=== PATIENT | male | born 1970 | race Caucasian/White ===

== ENCOUNTER 2023-06-09 11:27 | Observation (INO) | payer SELFPAY ==
[2023-06-09] MEDS ORDERED: Ondansetron PF 4 MG/2 ML Vial IVP PRN (13:44)
[2023-06-09] MEDS ORDERED: Ondansetron ODT 4 MG TAB PO PRN (13:44)
[2023-06-09] MEDS ORDERED: Morphine 2 MG/ML VIAL SLOW IVP PRN (13:46)
[2023-06-09] MEDS: Sodium Chloride 0.9% 1,000 ML IV SCH ×3 (14:34→22:54)
[2023-06-09] MEDS ORDERED: Ketorolac Tromethamine 30 MG (1 mL) VIAL IVP PRN ×2 (15:18→21:40)
[2023-06-09] MEDS ORDERED: Nicotine 21 MG PATCH TD PRN (15:19)
[2023-06-09] MEDS ORDERED: Electrolyte Replacement Protocol 1 EACH FS SCH (16:30)
[2023-06-09 17:03] VITALS: BMI 24.4
[2023-06-09] MEDS ORDERED: Piperacillin/Tazobactam 4.5 GM in Sodium Chloride 0.9% 100 ML IVPB SCH (18:00)
[2023-06-09] MEDS: Piperacillin/Tazobactam 3.375 GM in Sodium Chloride 0.9% 100 ML IVPB SCH ×2 (18:36→21:34)
[2023-06-09] MEDS ORDERED: fentaNYL 50 mcg/mL 1 mL Vial SLOW IVP PRN ×2 (22:48→22:49)
[2023-06-09] MEDS: Acetaminophen 500 MG TAB PO SCH (22:53)
[2023-06-10 05:29] LABS: Lipase 6 U/L (8-78); Phosphorus 2.4 mg/dL (2.3-4.7)
[2023-06-10 05:30] LABS: ALT (SGPT) 248 U/L (8-55); AST (SGOT) 182 U/L (5-34); Albumin 3.6 g/dL (3.5-5.0); Alkaline Phosphatase 133 U/L (40-110); Anion Gap 12 mmol/L (10-20); BUN (Urea Nitrogen) 11 mg/dL (8.4-25.7); Bilirubin, Total 4.2 mg/dL (0.2-1.2); Calc. Creatinine Clearance 91 mL/min (70-130); Calcium 8.2 mg/dL (7.8-10.44); Carbon Dioxide 25 mmol/L (22-29); Chloride 110 mmol/L (98-107); Estimated GFR 81; Globulin 2.2 g/dL (2.4-3.5); Glucose 79 mg/dL (70-105); Magnesium 1.7 mg/dL (1.6-2.6); Potassium 4.1 mmol/L (3.5-5.1); Protein, Total 5.8 g/dL (6.0-8.3); Sodium 143 mmol/L (136-145)
[2023-06-10 05:36] LABS: #Monocytes 0.5 10x3/uL (0.0-1.1); #Neutrophils 5.6 10x3/uL (1.5-8.4); %Basophils 0.3 % (0.0-2.0); %Eosinophils 0.3 % (0.0-6.0); %Lymphocytes 7.9 % (18.0-47.0); %Monocytes 7.7 % (0.0-10.0); %Neutrophils 83.4 % (40.0-75.0); Hematocrit 37.8 % (38.8-50.0); Hemoglobin 12.5 g/dL (13.5-17.5); Mean Corpuscular HGB CONC 33.1 g/dL (32.0-36.0); Mean Corpuscular Hemoglobin 32.6 pg (27.0-33.0); Mean Corpuscular Volume 98.4 fl (81.2-95.1); Mean Platelet Volume 9.6 fl (7.4-10.4); Platelet Count 135 10x3/uL (150-450); RBC Distribution Width 12.9 % (11.5-14.5); Red Blood Cell (RBC) Count 3.84 10x6/uL (4.32-5.72); White Blood Cell (WBC) Count 6.8 10x3/uL (3.5-10.5)
[2023-06-10] MEDS: Piperacillin/Tazobactam 3.375 GM in Sodium Chloride 0.9% 100 ML IVPB SCH (05:59)
[2023-06-10] MEDS ORDERED: Bupivacaine PF 0.5% 30 ML VIAL ONE (08:28)
[2023-06-10] MEDS ORDERED: EPINEPHrine 1 MG/ML VIAL ONE (08:28)
[2023-06-10] MEDS ORDERED: Glucagon 1 MG/ML KIT ONE (08:28)
[2023-06-10] MEDS ORDERED: Iopamidol 15 ML ONE ×2 (08:29→09:43)
[2023-06-10] MEDS ORDERED: Ibuprofen 600 MG TAB PO PRN (08:45)
[2023-06-10] MEDS ORDERED: Dexamethasone 4 mg/ml Vial ONE (08:54)
[2023-06-10] MEDS ORDERED: Midazolam HCl 2 mg/2 ml Vial ONE (08:54)
[2023-06-10] MEDS ORDERED: fentaNYL 50 mcg/mL 1 mL Vial ONE ×2 (08:54→10:53)
[2023-06-10] MEDS ORDERED: Rocuronium Bromide 10 MG/ML (10ML VIAL) ONE (08:54)
[2023-06-10] MEDS ORDERED: Ondansetron PF 4 MG/2 ML Vial ONE (08:54)
[2023-06-10] MEDS ORDERED: Esmolol 100 MG/10 ML VIAL ONE (08:54)
[2023-06-10] MEDS ORDERED: PROPOFOL 20 ML ONE (08:54)
[2023-06-10] MEDS ORDERED: Ketorolac Tromethamine 30 MG (1 mL) VIAL ONE ×2 (08:54→08:55)
[2023-06-10] MEDS ORDERED: Lidocaine 1% PF 5 ML VIAL ONE ×2 (08:54→09:39)
[2023-06-10] MEDS ORDERED: SUGAMMADEX SODIUM 200 MG/2 ML VIAL ONE (08:55)
[2023-06-10] MEDS ORDERED: Naloxone HCl 0.4 mg/ml Vial ONE (09:39)
[2023-06-10] MEDS ORDERED: MINERAL OIL/WHITE PETROLATUM 3.5 GM TUBE ONE (09:39)
[2023-06-10] MEDS ORDERED: Glycopyrrolate 0.2 MG/ML 5 ML SYRINGE ONE (09:39)
[2023-06-10] MEDS ORDERED: hydrALAZINE 20 MG/ML VIAL ONE (09:39)
[2023-06-10] MEDS ORDERED: Vecuronium 10 MG VIAL ONE (09:39)
[2023-06-10] MEDS ORDERED: CEFAZOLIN 1 GM VIAL ONE (09:39)
[2023-06-10] MEDS ORDERED: Calcium Gluc 4.6 MEQ/10 ML (100 MG/ML) ONE (09:39)
[2023-06-10] MEDS ORDERED: PHENYLEPHRINE-NS 100 MCG/ML 10 ML SYRINGE ONE (09:39)
[2023-06-10] MEDS: Acetaminophen 500 MG TAB PO SCH (10:10)
[2023-06-10] MEDS ORDERED: Ondansetron ODT 4 MG TAB PO PRN (10:56)
[2023-06-10] MEDS: Sodium Chloride 0.9% 1,000 ML IV SCH (12:06)
[2023-06-10] MEDS: LevoFLOXacin 750 mg/D5W 750 MG in Premix 1 BAG IVPB SCH (12:13)
[2023-06-10] MEDS: fentaNYL 50 mcg/mL 1 mL Vial SLOW IVP PRN (12:26)
[2023-06-10] MEDS: Sodium Chloride 0.45% 1,000 ML IV SCH (12:30)
[2023-06-10] MEDS: traMADol HCl 50 MG TAB PO PRN (14:34)
[2023-06-10] MEDS: Enoxaparin 40 MG (0.4 mL) SYRINGE SC SCH (20:38)
[2023-06-10] MEDS ORDERED: Ketorolac Tromethamine 30 MG (1 mL) VIAL IVP SCH (21:45)
[2023-06-11 01:06] VITALS: BP 139/63; TEMP 98.5
== END 2023-06-11 00:50 | disposition short-term general hospital (02) ==
LOC: CSHERS 11:27 → CSHERHOLD 13:45 → CSHTELE 16:07
PROVIDERS: ADMIT Internal Medicine; ATTEND Internal Medicine
PROC: 0FT44ZZ Resection of Gallbladder, Percutaneous Endoscopic Approach (ICD-10-PCS; principal; 2023-06-11)
PROC: BF532Z0 Other Imaging of Gallbladder and Bile Ducts using Fluorescing Agent, Intraoperative (ICD-10-PCS; 2023-06-11)
DX: K80.64 Calculus of gallbladder and bile duct with chronic cholecystitis without obstruction (principal); R63.4 Abnormal weight loss; R74.01 Elevation of levels of liver transaminase levels; Z79.899 Other long term (current) drug therapy; Z98.84 Bariatric surgery status; Z90.49 Acquired absence of other specified parts of digestive tract; Z88.5 Allergy status to narcotic agent; Z68.24 Body mass index [BMI] 24.0-24.9, adult
CPT/HCPCS: 36415; 47532; 76705; 80053; 83690; 83735; 84100; 85025; 88304; 94760; 96372; 96374; 96375; 96376; C1713; C1889; G0378; J0171; J0360; J0612; J0665; J0690; J1100; J1611; J1650; J1885; J1956; J2250; J2310; J2405; J2543; J2704; J3010; J3490; J7050; Q9967